=== PATIENT | female | born 1945 | race Caucasian/White ===

== ENCOUNTER 2018-06-17 03:53 | Inpatient (IN) | payer MEDICARE, OTHER ==
[2018-06-17] VITALS (23 sets, daily range): BP systolic 85–184; BP diastolic 41–86
[~2018-06-17] VITALS: Ht 152.4 cm; Wt 91.0 kg
[2018-06-17] MEDS ORDERED: heparin 10,000 units/1 ML INJ IV PRN (04:00)
[2018-06-17] MEDS ORDERED: heparin 10,000 units/1 ML INJ IV ONE ×2 (04:00)
[2018-06-17] MEDS ORDERED: LEVOTHYROXINE PO (04:15)
[2018-06-17] MEDS ORDERED: METOPROLOL PO (04:15)
[2018-06-17] MEDS ORDERED: AMLO2.5T2 PO (04:15)
[2018-06-17] MEDS ORDERED: HYDR25TA4 PO (04:15)
[2018-06-17] MEDS ORDERED: SPIR25TA5 PO (04:15)
[2018-06-17] MEDS ORDERED: ASPI-1265 PO (04:15)
[2018-06-17] MEDS ORDERED: LORA0.5T PO (04:15)
[2018-06-17] MEDS ORDERED: ATOR10TA87 PO (04:15)
[2018-06-17] MEDS ORDERED: iohexol 350 MG/1 ML 200ml bottle ONE (04:21)
[2018-06-17] MEDS ORDERED: midazolam 2 mg/2 ml injection ONE (04:21)
[2018-06-17] MEDS ORDERED: iohexol 350 MG/ML 50ML vial IV ONE (04:21)
[2018-06-17] MEDS ORDERED: fentaNYL/PF 50MCG/1 ML 2ML syringe ONE (04:21)
[2018-06-17] MEDS ORDERED: nitroGLYCERIN-Tridil 50MG/D5W 250 ML IV ONE (04:21)
[2018-06-17] MEDS ORDERED: heparin 1,000unit/ml 10ml vial 10 ML ONE (04:21)
[2018-06-17] MEDS ORDERED: LIDOcaine 1% 30ml preserv. free vial ONE (04:21)
[2018-06-17 04:38] LABS: BASOPHILS % (AUTO) 0.2 % (0-1); EOSINOPHILS # (AUTO) 0.2 X10'3 (0-0.9); EOSINOPHILS % (AUTO) 1.9 % (0-6); HEMATOCRIT 38.8 % (35.0-45.0); HEMOGLOBIN 13.1 g/dl (12.0-16.0); LYMPHOCYTES # (AUTO) 3.7 X10'3 (1.1-4.8); LYMPHOCYTES % (AUTO) 27.3 % (21-51); MEAN CORPUSCULAR HEMOGLOBIN 30.7 PG (27.0-31.0); MEAN CORPUSCULAR HGB CONC 33.8 % (33.0-36.5); MEAN CORPUSCULAR VOLUME 90.9 FL (78-98); MEAN PLATELET VOLUME 8.8 FL (7.4-10.4); MONOCYTES # (AUTO) 1.2 X10'3 (0-0.9); MONOCYTES % (AUTO) 9.2 % (2-12); NEUTROPHILS # (AUTO) 8.2 X10'3 (1.8-7.7); NEUTROPHILS % (AUTO) 61.4 % (42-75); PLATELET COUNT 227 X10'3 (140-440); RED BLOOD COUNT 4.27 X10'6 (4.20-5.60); RED CELL DISTRIBUTION WIDTH 13.8 % (11.5-14.5); WHITE BLOOD COUNT 13.4 X10'3 (4.5-11.0)
[2018-06-17 04:53] LABS: ALANINE AMINOTRANSFERASE 40 U/L (12-78); ALBUMIN 2.5 G/DL (3.4-5.0); ALBUMIN/GLOBULIN RATIO 0.8 (1.1-1.5); ALKALINE PHOSPHATASE 58 IU/L (46-116); ANION GAP 11 (8-16); ASPARTATE AMINO TRANSFERASE 30 U/L (10-37); BILIRUBIN,TOTAL 0.3 MG/DL (0.1-1.0); BLOOD UREA NITROGEN 21 MG/DL (7-18); BUN/CREATININE RATIO 24.7 (6.6-38.0); CALCIUM 7.3 MG/DL (8.5-10.1); CHLORIDE 108 MMOL/L (99-107); CREATININE 0.85 MG/DL (0.40-0.90); GLUCOSE 263 MG/DL (70-104); POTASSIUM 3.1 MMOL/L (3.5-5.1); SODIUM 141 MMOL/L (135-145); TOTAL CARBON DIOXIDE 22.4 MMOL/L (24-32); TOTAL PROTEIN 5.7 G/DL (6.4-8.2); eGFR 65 ML/MIN
[2018-06-17] MEDS ORDERED: heparin 1,000 UNITS/NS 500ml 500 ML ONE (04:56)
[2018-06-17] MEDS ORDERED: DOPamine 400mg/D5W 250ml 250 ML IV ONE (05:06)
[2018-06-17] MEDS ORDERED: ticagrelor 90mg tablet ONE (05:33)
[2018-06-17] MEDS ORDERED: potassium Cl 20mEq/100mL bag 100 ML IV ONE (05:48)
[2018-06-17 06:31] LABS: ISTAT HGB ART 13.9 g/dl (12.0-16.0); ISTAT Hct ART 41 %PCV (35-48); ISTAT O2 SATURATION ARTERIAL 96 % (95-98); ISTAT SOURCE ART
[2018-06-17 06:31] LABS: ISTAT Hct MIX 41 %PCV (35-48); ISTAT O2 SATURATION MIX VENOUS 51 % (60-80); ISTAT SOURCE MIX
[2018-06-17] MEDS ORDERED: magnesium hydroxide 30ml (MOM) UD suspension PO PRN (07:15)
[2018-06-17] MEDS ORDERED: HYDROcodone/acetaminophen 10/325mg tab PO PRN (07:15)
[2018-06-17] MEDS ORDERED: acetaminophen 325mg tablet PO PRN (07:15)
[2018-06-17] MEDS ORDERED: proCHLORperazine 10 MG/2 ml inj IV PRN (07:15)
[2018-06-17] MEDS ORDERED: cyclobenzaprine 10mg tablet PO PRN (07:15)
[2018-06-17] MEDS ORDERED: furosemide 20 MG/2 ML vial IV ONE (07:20)
[2018-06-17] MEDS ORDERED: normal saline 1000ml 1,000 ML IV SCH (07:20)
[2018-06-17] MEDS ORDERED: magnesium 4gm in 100ml NS 100 ML IV PRN (07:30)
[2018-06-17] MEDS ORDERED: potassium Cl 40MEQ/250ML bag 250 ML IV PRN ×2 (07:30)
[2018-06-17] MEDS ORDERED: magnesium 1gm/100ml D5W IVPB 100 ML IV PRN (07:30)
[2018-06-17] MEDS ORDERED: potassium Cl 20 mEq SR tablet PO PRN ×2 (07:30)
[2018-06-17] MEDS ORDERED: potassium Cl 20 mEq SR tablet PO ONE (07:30)
[2018-06-17] MEDS ORDERED: aspirin 81mg tab.chew PO ONE (07:30)
[2018-06-17] MEDS ORDERED: MESSAGE TO PHARMACY PO ONE (07:35)
[2018-06-17] MEDS ORDERED: dextrose 50%-water 50ml dispensing syringe IV PRN ×2 (07:35)
[2018-06-17] MEDS ORDERED: dextrose ORAL solution 15 GM/59 ML bottle PO PRN ×2 (07:35)
[2018-06-17] MEDS ORDERED: glucagon, human recombinant 1mg kit SUBCUT PRN (07:35)
[2018-06-17 07:41] LABS: MAGNESIUM 1.2 MG/DL (1.5-2.4)
[2018-06-17] MEDS: docusate sod 100mg capsule PO SCH ×2 (07:47→19:09)
[2018-06-17] MEDS: lisinopril 5mg tablet PO SCH (07:47)
[2018-06-17] MEDS: metoprolol tartrate 50mg tablet PO SCH ×2 (07:47→19:10)
[2018-06-17] MEDS: atorvastatin 20mg tablet PO SCH (07:48)
[2018-06-17] MEDS: K and/or MAG REPLACEMENT MC SCH (08:00)
[2018-06-17] MEDS: aspirin 81mg tab.chew PO SCH (08:00)
[2018-06-17] MEDS: furosemide 20MG tablet PO SCH (08:00)
[2018-06-17 08:52] LABS: CHOL/HDL RATIO 3.4 (0.00-4.99); CHOLESTEROL 154 MG/DL (0-200); HDL CHOLESTEROL 45 MG/DL (35-60); LDL CHOLESTEROL 104 MG/DL (50-100); TRIGLYCERIDES 41 MG/DL (20-135)
[2018-06-17 09:48] LABS: HEMOGLOBIN A1C 8.3 % (4.5-6.2)
[2018-06-17] MEDS: insulin Lispro (HumaLOG) vial - multi-dose SQ SCH ×3 (10:10→19:13)
[2018-06-17] MEDS: HYDROcodone/acetaminophen 10/325mg tab PO PRN ×2 (10:51→22:02)
[2018-06-17] MEDS: spironolactone 25 MG tablet PO SCH (10:51)
[2018-06-17] MEDS: ticagrelor 90mg tablet PO SCH (20:32)
[2018-06-17] MEDS: insulin glargine (Lantus) pen - multi-dose SQ SCH (20:47)
[2018-06-17] MEDS: OXAZEpam 15mg capsule PO PRN (22:03)
[2018-06-18] VITALS (24 sets, daily range): BP systolic 87–139; BP diastolic 49–72
[2018-06-18 05:13] LABS: BASOPHILS % (AUTO) 0.1 % (0-1); EOSINOPHILS % (AUTO) 0.1 % (0-6); HEMOGLOBIN 13.9 g/dl (12.0-16.0); LYMPHOCYTES # (AUTO) 2.5 X10'3 (1.1-4.8); MEAN CORPUSCULAR HEMOGLOBIN 30.9 PG (27.0-31.0); MEAN CORPUSCULAR HGB CONC 34.8 % (33.0-36.5); MEAN CORPUSCULAR VOLUME 89.1 FL (78-98); MONOCYTES # (AUTO) 1.7 X10'3 (0-0.9); MONOCYTES % (AUTO) 12.6 % (2-12); NEUTROPHILS # (AUTO) 9.1 X10'3 (1.8-7.7); NEUTROPHILS % (AUTO) 68.2 % (42-75); PLATELET COUNT 237 X10'3 (140-440); RED BLOOD COUNT 4.49 X10'6 (4.20-5.60); WHITE BLOOD COUNT 13.4 X10'3 (4.5-11.0)
[2018-06-18 05:36] LABS: ALBUMIN 2.9 G/DL (3.4-5.0); ANION GAP 9 (8-16); BLOOD UREA NITROGEN 27 MG/DL (7-18); BUN/CREATININE RATIO 29.7 (6.6-38.0); CALCIUM 8.9 MG/DL (8.5-10.1); CHLORIDE 102 MMOL/L (99-107); CREATININE 0.91 MG/DL (0.40-0.90); GLUCOSE 155 MG/DL (70-104); MAGNESIUM 1.4 MG/DL (1.5-2.4); POTASSIUM 3.9 MMOL/L (3.5-5.1); SODIUM 136 MMOL/L (135-145); TOTAL CARBON DIOXIDE 25.3 MMOL/L (24-32); eGFR 60 ML/MIN
[2018-06-18] MEDS: K and/or MAG REPLACEMENT MC SCH (07:17)
[2018-06-18] MEDS: ticagrelor 90mg tablet PO SCH ×2 (08:04→19:25)
[2018-06-18] MEDS: lisinopril 5mg tablet PO SCH (08:04)
[2018-06-18] MEDS: metoprolol tartrate 50mg tablet PO SCH ×2 (08:04→19:25)
[2018-06-18] MEDS: aspirin 81mg tab.chew PO SCH (08:04)
[2018-06-18] MEDS: atorvastatin 20mg tablet PO SCH (08:04)
[2018-06-18] MEDS: spironolactone 25 MG tablet PO SCH (08:04)
[2018-06-18] MEDS: furosemide 20MG tablet PO SCH (08:04)
[2018-06-18] MEDS: docusate sod 100mg capsule PO SCH ×2 (08:04→19:25)
[2018-06-18] MEDS ORDERED: heparin 10,000 units/1 ML INJ ONE (09:00)
[2018-06-18] MEDS ORDERED: heparin, porcine/D5W 25,000 units/250ml premix IV ONE (09:00)
[2018-06-18] MEDS: insulin Lispro (HumaLOG) vial - multi-dose SQ SCH ×4 (09:37→21:24)
[2018-06-18] MEDS: insulin glargine (Lantus) pen - multi-dose SQ SCH (21:08)
[2018-06-19] VITALS (16 sets, daily range): BP systolic 91–160; BP diastolic 45–93
[2018-06-19 05:51] LABS: MAGNESIUM 1.6 MG/DL (1.5-2.4); POTASSIUM 3.5 MMOL/L (3.5-5.1)
[2018-06-19] MEDS: atorvastatin 20mg tablet PO SCH (07:15)
[2018-06-19] MEDS: lisinopril 5mg tablet PO SCH (07:15)
[2018-06-19] MEDS: ticagrelor 90mg tablet PO SCH ×2 (07:15→19:28)
[2018-06-19] MEDS: docusate sod 100mg capsule PO SCH ×2 (07:15→19:28)
[2018-06-19] MEDS: aspirin 81mg tab.chew PO SCH (07:16)
[2018-06-19] MEDS: metoprolol tartrate 50mg tablet PO SCH ×2 (07:16→19:28)
[2018-06-19] MEDS: furosemide 20MG tablet PO SCH (07:16)
[2018-06-19] MEDS: spironolactone 25 MG tablet PO SCH (07:23)
[2018-06-19] MEDS: K and/or MAG REPLACEMENT MC SCH (08:00)
[2018-06-19] MEDS: insulin Lispro (HumaLOG) vial - multi-dose SQ SCH ×3 (09:00→19:27)
[2018-06-19] MEDS: nystatin 15 GM powder TP SCH (20:37)
[2018-06-19] MEDS: insulin glargine (Lantus) pen - multi-dose SQ SCH (21:46)
[2018-06-19] MEDS: OXAZEpam 15mg capsule PO PRN (23:56)
[2018-06-20 03:00] VITALS: BP 122/43
[2018-06-20 05:50] LABS: MAGNESIUM 1.7 MG/DL (1.5-2.4); POTASSIUM 4.1 MMOL/L (3.5-5.1)
[2018-06-20] MEDS ORDERED: magnesium 4gm in 100ml NS 100 ML IV ONE (06:30)
[2018-06-20 07:00] VITALS: BP 128/63
[2018-06-20] MEDS ORDERED: diltiazem 5mg/ml 5ml inj. IV ONE (07:55)
[2018-06-20] MEDS ORDERED: diltiazem-NS 100mg/100ml 100 ML IV SCH (07:55)
[2018-06-20] MEDS: lisinopril 5mg tablet PO SCH (07:56)
[2018-06-20] MEDS: levoTHYROXINE 25mcg tablet PO SCH (07:56)
[2018-06-20] MEDS: levoTHYROXINE 112mcg tablet PO SCH (07:56)
[2018-06-20] MEDS: metoprolol tartrate 50mg tablet PO SCH ×2 (07:56→19:53)
[2018-06-20] MEDS: docusate sod 100mg capsule PO SCH ×2 (07:56→19:53)
[2018-06-20] MEDS: furosemide 20MG tablet PO SCH (07:57)
[2018-06-20] MEDS: ticagrelor 90mg tablet PO SCH ×2 (07:57→19:53)
[2018-06-20] MEDS: atorvastatin 20mg tablet PO SCH (07:57)
[2018-06-20] MEDS: aspirin 81mg tab.chew PO SCH (07:57)
[2018-06-20] MEDS: spironolactone 25 MG tablet PO SCH (07:57)
[2018-06-20] MEDS ORDERED: LEVOTHYROXINE 0.137 MG PO SCH (08:00)
[2018-06-20] MEDS: nystatin 15 GM powder TP SCH ×2 (08:00→19:53)
[2018-06-20] MEDS: insulin Lispro (HumaLOG) vial - multi-dose SQ SCH ×3 (08:51→18:44)
[2018-06-20 11:00] VITALS: BP 99/48
[2018-06-20 15:00] VITALS: BP 110/85
[2018-06-20 18:00] VITALS: BP 124/71
[2018-06-20] MEDS: magnesium Cl slow-release 64mg tablet PO PRN (19:54)
[2018-06-20] MEDS: insulin glargine (Lantus) pen - multi-dose SQ SCH (21:14)
[2018-06-20 22:00] VITALS: BP 119/71
[2018-06-21 02:00] VITALS: BP 118/84
[2018-06-21 06:13] LABS: MAGNESIUM 1.7 MG/DL (1.5-2.4); POTASSIUM 4.3 MMOL/L (3.5-5.1)
[2018-06-21 06:30] VITALS: BP 94/52
[2018-06-21] MEDS: levoTHYROXINE 112mcg tablet PO SCH (07:05)
[2018-06-21] MEDS: metoprolol tartrate 50mg tablet PO SCH (07:06)
[2018-06-21] MEDS: aspirin 81mg tab.chew PO SCH (07:06)
[2018-06-21] MEDS: levoTHYROXINE 25mcg tablet PO SCH (07:06)
[2018-06-21] MEDS: ticagrelor 90mg tablet PO SCH (07:06)
[2018-06-21] MEDS: docusate sod 100mg capsule PO SCH (07:06)
[2018-06-21] MEDS: furosemide 20MG tablet PO SCH (07:06)
[2018-06-21] MEDS: lisinopril 5mg tablet PO SCH (07:07)
[2018-06-21] MEDS: atorvastatin 20mg tablet PO SCH (07:07)
[2018-06-21] MEDS ORDERED: apixaban 5mg tablet PO SCH (08:00)
[2018-06-21] MEDS: spironolactone 25 MG tablet PO SCH (08:22)
[2018-06-21] MEDS: insulin Lispro (HumaLOG) vial - multi-dose SQ SCH ×2 (08:24→13:23)
[2018-06-21] MEDS: magnesium Cl slow-release 64mg tablet PO PRN (09:00)
[2018-06-21] MEDS: nystatin 15 GM powder TP SCH (09:00)
[2018-06-21] MEDS ORDERED: APIX5TAB3 PO (09:47)
[2018-06-21] MEDS ORDERED: LISI-642 PO (09:47)
[2018-06-21] MEDS ORDERED: TICA90TA PO (09:47)
[2018-06-21] MEDS ORDERED: ATOR40TA PO (09:48)
[2018-06-21 11:00] VITALS: BP 92/62
== END 2018-06-21 15:11 | disposition home or self-care (01) | DRG 246 ==
LOC: ER 03:53 → CICU 2S 05:00 → PCU 3S 06-19 11:43
PROVIDERS: ADMIT Internal Medicine Cardiovascular Disease; ATTEND Internal Medicine Cardiovascular Disease
PROC: 4A023N8 Measurement of Cardiac Sampling and Pressure, Bilateral, Percutaneous Approach (ICD-10-PCS; principal; 2018-06-17)
PROC: 027034Z Dilation of Coronary Artery, One Artery with Drug-eluting Intraluminal Device, Percutaneous Approach (ICD-10-PCS; 2018-06-17)
PROC: B2111ZZ Fluoroscopy of Multiple Coronary Arteries using Low Osmolar Contrast (ICD-10-PCS; 2018-06-17)
PROC: B2151ZZ Fluoroscopy of Left Heart using Low Osmolar Contrast (ICD-10-PCS; 2018-06-17)
DX: I21.11 ST elevation (STEMI) myocardial infarction involving right coronary artery (principal); I50.21 Acute systolic (congestive) heart failure; E03.9 Hypothyroidism, unspecified; E11.9 Type 2 diabetes mellitus without complications; E78.5 Hyperlipidemia, unspecified; F41.9 Anxiety disorder, unspecified; I11.0 Hypertensive heart disease with heart failure; I48.91 Unspecified atrial fibrillation; Z79.899 Other long term (current) drug therapy; Z79.82 Long term (current) use of aspirin; Z79.01 Long term (current) use of anticoagulants; Z86.73 Personal history of transient ischemic attack (TIA), and cerebral infarction without residual deficits; Z82.49 Family history of ischemic heart disease and other diseases of the circulatory system
CPT/HCPCS: 93306; 93460; 96374; 99285; C9606; 36415; 71045; 80048; 80053; 80061; 82803; 82948; 83036; 83735; 83880; 84132; 84484; 85014; 85025; 85347; 87070; 93005; 93308; 97116; 97162; 97530; A4620; A6213; A6257; A6449; C1725; C1769; C1874; C1894; J0780; J1265; J1644; J1815; J1940; J2250; J3010; J3475; J3480; J3490; J7030; Q9967

== ENCOUNTER 2018-08-09 08:46 | Outpatient (CLI) | payer MEDICARE ==
[~2018-08-09 08:46] MED LIST: APIX5TAB3 PO; ASPI-1265 PO; ATOR40TA PO; HYDR25TA4 PO; LEVOTHYROXINE PO; LISI-642 PO; LORA0.5T PO; METOPROLOL PO; SPIR25TA5 PO; TICA90TA PO
[2018-08-09 09:41] LABS: BASOPHILS % (AUTO) 0.3 % (0-1); EOSINOPHILS # (AUTO) 0.2 X10'3 (0-0.9); EOSINOPHILS % (AUTO) 2.1 % (0-6); HEMATOCRIT 41.2 % (35.0-45.0); HEMOGLOBIN 13.8 g/dl (12.0-16.0); LYMPHOCYTES # (AUTO) 1.5 X10'3 (1.1-4.8); LYMPHOCYTES % (AUTO) 13.5 % (21-51); MEAN CORPUSCULAR HEMOGLOBIN 30.8 PG (27.0-31.0); MEAN CORPUSCULAR HGB CONC 33.4 % (33.0-36.5); MEAN PLATELET VOLUME 8.7 FL (7.4-10.4); MONOCYTES # (AUTO) 0.8 X10'3 (0-0.9); MONOCYTES % (AUTO) 7.4 % (2-12); NEUTROPHILS # (AUTO) 8.7 X10'3 (1.8-7.7); NEUTROPHILS % (AUTO) 76.7 % (42-75); PLATELET COUNT 316 X10'3 (140-440); RED BLOOD COUNT 4.48 X10'6 (4.20-5.60); RED CELL DISTRIBUTION WIDTH 14.5 % (11.5-14.5); WHITE BLOOD COUNT 11.4 X10'3 (4.5-11.0)
[2018-08-09 09:48] LABS: ALBUMIN 3.1 G/DL (3.4-5.0); ANION GAP 6 (8-16); BLOOD UREA NITROGEN 25 MG/DL (7-18); BUN/CREATININE RATIO 28.7 (6.6-38.0); CALCIUM 9.2 MG/DL (8.5-10.1); CHLORIDE 100 MMOL/L (99-107); CREATININE 0.87 MG/DL (0.40-0.90); GLUCOSE 194 MG/DL (70-104); POTASSIUM 3.9 MMOL/L (3.5-5.1); SODIUM 136 MMOL/L (135-145); TOTAL CARBON DIOXIDE 30.5 MMOL/L (24-32); eGFR 63 ML/MIN
[2018-08-09 09:53] LABS: PARTIAL THROMBOPLASTIN TIME 26 SECONDS (22-32); PROTHROMBIN TIME 10.3 SECONDS (9.0-12.0)
[2018-08-10] MEDS ORDERED: nitroGLYCERIN-Tridil 50MG/D5W 0 ML IV ONE (07:46)
[2018-08-10] MEDS ORDERED: heparin 1,000unit/ml 10ml vial 0 ML ONE (07:47)
[2018-08-10] MEDS ORDERED: midazolam 2 mg/2 ml injection ONE (07:47)
[2018-08-10] MEDS ORDERED: LIDOcaine 1% 30ml preserv. free vial ONE (07:47)
[2018-08-10] MEDS ORDERED: fentaNYL/PF 50MCG/1 ML 2ML syringe ONE (07:47)
[2018-08-10] MEDS ORDERED: iohexol 350MG/ML 100ml bottle IV ONE (07:47)
[2018-08-10] MEDS ORDERED: heparin 1,000 UNITS/NS 500ml 0 ML ONE (07:47)
[2018-08-10] MEDS ORDERED: iohexol 350 MG/ML 50ML vial IV ONE (07:47)
== END 2018-08-09 23:59 | disposition home or self-care (01) ==
LOC: SSTAY O 08:46 → EDSTATUS 08-10 08:00
PROVIDERS: ATTEND Internal Medicine Cardiovascular Disease
DX: I25.118 Atherosclerotic heart disease of native coronary artery with other forms of angina pectoris (principal); I10 Essential (primary) hypertension; E03.9 Hypothyroidism, unspecified; E11.9 Type 2 diabetes mellitus without complications; E78.5 Hyperlipidemia, unspecified; E66.9 Obesity, unspecified; I25.2 Old myocardial infarction; I48.0 Paroxysmal atrial fibrillation; Z86.73 Personal history of transient ischemic attack (TIA), and cerebral infarction without residual deficits; Z90.49 Acquired absence of other specified parts of digestive tract; Z79.01 Long term (current) use of anticoagulants; Z79.4 Long term (current) use of insulin; Z79.82 Long term (current) use of aspirin; Z68.37 Body mass index [BMI] 37.0-37.9, adult; Z95.5 Presence of coronary angioplasty implant and graft; Z86.74 Personal history of sudden cardiac arrest; Z79.899 Other long term (current) drug therapy; Z98.890 Other specified postprocedural states; Z82.49 Family history of ischemic heart disease and other diseases of the circulatory system
CPT/HCPCS: 36415; 80048; 85025; 85610; 85730; J1644; J2250; J3010; J3490; Q9967

== ENCOUNTER 2018-09-21 06:58 | Day surgery (SDC) | payer MEDICARE ==
[2018-09-20 11:15] LABS: BASOPHILS % (AUTO) 0.2 % (0-1); EOSINOPHILS # (AUTO) 0.2 X10'3 (0-0.9); EOSINOPHILS % (AUTO) 1.5 % (0-6); HEMATOCRIT 42.5 % (35.0-45.0); HEMOGLOBIN 14.2 g/dl (12.0-16.0); LYMPHOCYTES # (AUTO) 2.1 X10'3 (1.1-4.8); LYMPHOCYTES % (AUTO) 20.1 % (21-51); MEAN CORPUSCULAR HEMOGLOBIN 30.1 PG (27.0-31.0); MEAN CORPUSCULAR HGB CONC 33.5 % (33.0-36.5); MEAN CORPUSCULAR VOLUME 90.1 FL (78-98); MEAN PLATELET VOLUME 8.5 FL (7.4-10.4); MONOCYTES # (AUTO) 0.9 X10'3 (0-0.9); MONOCYTES % (AUTO) 8.9 % (2-12); NEUTROPHILS # (AUTO) 7.2 X10'3 (1.8-7.7); NEUTROPHILS % (AUTO) 69.3 % (42-75); PLATELET COUNT 290 X10'3 (140-440); RED BLOOD COUNT 4.72 X10'6 (4.20-5.60); RED CELL DISTRIBUTION WIDTH 12.9 % (11.5-14.5); WHITE BLOOD COUNT 10.4 X10'3 (4.5-11.0)
[2018-09-20 11:20] LABS: ALBUMIN 3.2 G/DL (3.4-5.0); ANION GAP 8 (8-16); BLOOD UREA NITROGEN 23 MG/DL (7-18); BUN/CREATININE RATIO 27.7 (6.6-38.0); CALCIUM 9.5 MG/DL (8.5-10.1); CHLORIDE 99 MMOL/L (99-107); CREATININE 0.83 MG/DL (0.40-0.90); GLUCOSE 120 MG/DL (70-104); POTASSIUM 4.1 MMOL/L (3.5-5.1); SODIUM 136 MMOL/L (135-145); TOTAL CARBON DIOXIDE 28.7 MMOL/L (24-32); eGFR 67 ML/MIN
[2018-09-20 11:33] LABS: PARTIAL THROMBOPLASTIN TIME 27 SECONDS (22-32); PROTHROMBIN TIME 10.3 SECONDS (9.0-12.0)
[~2018-09-21] VITALS: Ht 160 cm; Wt 83.9 kg
[2018-09-21] VITALS (12 sets, daily range): BP systolic 100–149; BP diastolic 36–76
[2018-09-21] MEDS ORDERED: LORazepam 0.5 MG tablet PO PRN (07:30)
[2018-09-21] MEDS ORDERED: diphenhydrAMINE 25mg capsule PO PRN (07:30)
[2018-09-21] MEDS ORDERED: INSU100V9 SQ (08:39)
[2018-09-21] MEDS ORDERED: LEVO125T PO (08:39)
[2018-09-21] MEDS ORDERED: METF500T PO (08:39)
[2018-09-21] MEDS ORDERED: HUM7525 SQ (08:39)
[2018-09-21] MEDS: normal saline 1000ml 1,000 ML IV SCH ×2 (08:44→17:30)
[2018-09-21] MEDS ORDERED: TICA90TA2 PO (08:45)
[2018-09-21] MEDS ORDERED: APIX5TAB3 PO (08:45)
[2018-09-21] MEDS ORDERED: iohexol 350MG/ML 100ml bottle IV ONE ×2 (09:43→10:36)
[2018-09-21] MEDS ORDERED: LIDOcaine 1% (10mg/ml)w/preservative injection 20ml MDV ONE (09:43)
[2018-09-21] MEDS ORDERED: nitroGLYCERIN-Tridil 50MG/D5W 250 ML IV ONE (09:43)
[2018-09-21] MEDS ORDERED: iohexol 350 MG/ML 50ML vial IV ONE (09:43)
[2018-09-21] MEDS ORDERED: heparin 1,000unit/ml 10ml vial 10 ML ONE (09:43)
[2018-09-21] MEDS ORDERED: heparin 25,000 UNIT/250ml bag 250 ML IV ONE (10:01)
[2018-09-21] MEDS ORDERED: fentaNYL/PF 50MCG/1 ML 2ML syringe ONE (10:01)
[2018-09-21] MEDS ORDERED: midazolam 2 mg/2 ml injection ONE (10:02)
[2018-09-21] MEDS ORDERED: ticagrelor 90mg tablet ONE (11:05)
[2018-09-21] MEDS ORDERED: cyclobenzaprine 10mg tablet PO PRN (11:50)
[2018-09-21] MEDS ORDERED: acetaminophen 325mg tablet PO PRN (11:50)
[2018-09-21] MEDS ORDERED: OXAZEpam 15mg capsule PO PRN (11:50)
[2018-09-21] MEDS ORDERED: magnesium hydroxide 30ml (MOM) UD suspension PO PRN (11:50)
[2018-09-21] MEDS ORDERED: proCHLORperazine 10 MG/2 ml inj IV PRN (11:50)
[2018-09-21] MEDS ORDERED: HYDROcodone/acetaminophen 10/325mg tab PO PRN ×2 (11:50)
[2018-09-21] MEDS: aspirin 81mg tab.chew PO SCH (12:18)
[2018-09-21] MEDS ORDERED: MESSAGE TO NURSING PO ONE (17:00)
[2018-09-21] MEDS: apixaban 5mg tablet PO SCH (19:35)
[2018-09-21] MEDS: docusate sod 100mg capsule PO SCH (20:00)
[2018-09-21] MEDS: spironolactone 25 MG tablet PO SCH (20:00)
[2018-09-21] MEDS ORDERED: insulin glargine (Lantus) pen - multi-dose SQ SCH (21:00)
[2018-09-21] MEDS: insulin Lispro (HumaLOG) vial - multi-dose SQ SCH (21:11)
[2018-09-21] MEDS: ticagrelor 90mg tablet PO SCH (22:29)
[2018-09-22 03:00] VITALS: BP 119/72
[2018-09-22 06:03] LABS: BASOPHILS % (AUTO) 0.4 % (0-1); EOSINOPHILS # (AUTO) 0.2 X10'3 (0-0.9); HEMATOCRIT 39.9 % (35.0-45.0); HEMOGLOBIN 13.5 g/dl (12.0-16.0); LYMPHOCYTES # (AUTO) 1.9 X10'3 (1.1-4.8); LYMPHOCYTES % (AUTO) 19.3 % (21-51); MEAN CORPUSCULAR HEMOGLOBIN 30.5 PG (27.0-31.0); MEAN CORPUSCULAR HGB CONC 33.9 % (33.0-36.5); MEAN PLATELET VOLUME 8.5 FL (7.4-10.4); MONOCYTES # (AUTO) 0.8 X10'3 (0-0.9); MONOCYTES % (AUTO) 8.4 % (2-12); NEUTROPHILS % (AUTO) 69.9 % (42-75); PLATELET COUNT 237 X10'3 (140-440); RED BLOOD COUNT 4.43 X10'6 (4.20-5.60); RED CELL DISTRIBUTION WIDTH 13.4 % (11.5-14.5)
[2018-09-22 06:23] LABS: ALANINE AMINOTRANSFERASE 24 U/L (12-78); ALBUMIN 2.8 G/DL (3.4-5.0); ALBUMIN/GLOBULIN RATIO 0.7 (1.1-1.5); ALKALINE PHOSPHATASE 71 IU/L (46-116); ANION GAP 11 (8-16); ASPARTATE AMINO TRANSFERASE 25 U/L (10-37); BILIRUBIN,TOTAL 0.5 MG/DL (0.1-1.0); BLOOD UREA NITROGEN 19 MG/DL (7-18); BUN/CREATININE RATIO 24.4 (6.6-38.0); CALCIUM 9.1 MG/DL (8.5-10.1); CHLORIDE 105 MMOL/L (99-107); CREATININE 0.78 MG/DL (0.40-0.90); GLUCOSE 141 MG/DL (70-104); SODIUM 139 MMOL/L (135-145); TOTAL CARBON DIOXIDE 22.9 MMOL/L (24-32); TOTAL PROTEIN 6.6 G/DL (6.4-8.2); eGFR 72 ML/MIN
[2018-09-22 06:57] VITALS: BP 121/66
[2018-09-22] MEDS ORDERED: METF500T PO (07:05)
[2018-09-22] MEDS ORDERED: CARV3.12 PO (07:06)
[2018-09-22] MEDS: insulin Lispro (HumaLOG) vial - multi-dose SQ SCH (07:54)
[2018-09-22] MEDS: aspirin 81mg tab.chew PO SCH (07:57)
[2018-09-22] MEDS: docusate sod 100mg capsule PO SCH (07:57)
[2018-09-22] MEDS: apixaban 5mg tablet PO SCH (07:58)
[2018-09-22] MEDS: ticagrelor 90mg tablet PO SCH (07:59)
[2018-09-22] MEDS ORDERED: carVEDilol 3.125mg tablet PO SCH (08:00)
[2018-09-22] MEDS ORDERED: lisinopril 5mg tablet PO SCH (08:00)
[2018-09-22] MEDS ORDERED: atorvastatin 20mg tablet PO SCH (08:00)
[2018-09-22] MEDS ORDERED: aspirin 81mg tab.chew PO SCH (08:00)
[2018-09-22] MEDS: spironolactone 25 MG tablet PO SCH (08:00)
[2018-09-22] MEDS ORDERED: HYDROchlorothiazide 25mg tablet PO SCH (08:00)
[2018-09-22] MEDS ORDERED: levoTHYROXINE 125mcg tablet PO SCH (08:00)
[2018-09-22] MEDS ORDERED: insulin glargine (Lantus) pen - multi-dose SQ SCH (08:31)
[2018-09-22] MEDS ORDERED: insulin Lispro (HumaLOG) vial - multi-dose SQ SCH (08:31)
[2018-09-22] MEDS ORDERED: carvedilol 6.25mg tablet PO SCH (08:45)
[2018-09-22] MEDS ORDERED: CARV-49 PO (08:54)
[2018-09-22] MEDS ORDERED: metoprolol tartrate 50mg tablet PO SCH ×2 (09:00→09:02)
[2018-09-22] MEDS ORDERED: METO50TA17 PO (09:03)
[2018-09-22 09:38] VITALS: BP_SYST 121
[2018-09-23] MEDS ORDERED: metFORMIN 500mg tablet PO SCH (20:00)
== END 2018-09-22 10:40 | disposition home or self-care (01) ==
LOC: SSTAY O 06:58 → MED 3N 19:27 → SSTAY O 09-22 10:40
PROVIDERS: ATTEND Internal Medicine Cardiovascular Disease
DX: I25.118 Atherosclerotic heart disease of native coronary artery with other forms of angina pectoris (principal); E11.9 Type 2 diabetes mellitus without complications; I10 Essential (primary) hypertension; E78.5 Hyperlipidemia, unspecified; I25.2 Old myocardial infarction; I48.0 Paroxysmal atrial fibrillation; E03.9 Hypothyroidism, unspecified; E66.9 Obesity, unspecified; H91.8X3 Other specified hearing loss, bilateral; Z87.2 Personal history of diseases of the skin and subcutaneous tissue; Z95.5 Presence of coronary angioplasty implant and graft; Z90.49 Acquired absence of other specified parts of digestive tract; Z68.32 Body mass index [BMI] 32.0-32.9, adult; Z86.74 Personal history of sudden cardiac arrest; Z86.73 Personal history of transient ischemic attack (TIA), and cerebral infarction without residual deficits; Z90.89 Acquired absence of other organs; Z79.01 Long term (current) use of anticoagulants; Z79.82 Long term (current) use of aspirin; Z79.4 Long term (current) use of insulin; Z98.890 Other specified postprocedural states; Z79.899 Other long term (current) drug therapy; Z82.49 Family history of ischemic heart disease and other diseases of the circulatory system
CPT/HCPCS: 36415; 80048; 80053; 82948; 85025; 85347; 85610; 85730; 93005; 93458; 99152; 99153; A6257; C1874; C9600; C9601; J1644; J2001; J2250; J3010; J7030; Q0163; Q9967; A4620; C1725; C1769; G0378; J1815; J3490

== ENCOUNTER 2020-11-01 16:15 | Emergency (ER) | payer MEDICARE ==
[~2020-11-01] VITALS: Ht 154.9 cm; Wt 84.1 kg
[~2020-11-01 16:15] MED LIST changes: +HUM7525 SQ; -HYDR25TA4 PO; +INSU100V9 SQ; +LEVO125T PO; -LEVOTHYROXINE PO; -LORA0.5T PO; +METO50TA17 PO; -METOPROLOL PO; -TICA90TA PO; +TICA90TA2 PO
[2020-11-01 17:15] LABS: BASOPHILS % (AUTO) 0.4 % (0-1); EOSINOPHILS # (AUTO) 0.1 X10'3 (0-0.9); EOSINOPHILS % (AUTO) 1.6 % (0-6); HEMATOCRIT 44.4 % (35.0-45.0); HEMOGLOBIN 14.8 g/dl (12.0-16.0); LYMPHOCYTES # (AUTO) 1.6 X10'3 (1.1-4.8); LYMPHOCYTES % (AUTO) 20.7 % (21-51); MEAN CORPUSCULAR HEMOGLOBIN 30.7 PG (27.0-31.0); MEAN CORPUSCULAR HGB CONC 33.3 g/dL (33.0-36.5); MEAN PLATELET VOLUME 8.8 FL (7.4-10.4); MONOCYTES % (AUTO) 13.1 % (2-12); NEUTROPHILS # (AUTO) 5.1 X10'3 (1.8-7.7); NEUTROPHILS % (AUTO) 64.2 % (42-75); PLATELET COUNT 263 X10'3 (140-440); RED BLOOD COUNT 4.82 X10'6 (4.20-5.60); RED CELL DISTRIBUTION WIDTH 13.8 % (11.5-14.5); WHITE BLOOD COUNT 7.9 X10'3 (4.5-11.0)
[2020-11-01 17:29] LABS: ALANINE AMINOTRANSFERASE 42 U/L (12-78); ALBUMIN 3.2 G/DL (3.4-5.0); ALBUMIN/GLOBULIN RATIO 0.8 (1.1-1.5); ALKALINE PHOSPHATASE 79 IU/L (46-116); ANION GAP 6 (8-16); ASPARTATE AMINO TRANSFERASE 24 U/L (10-37); BILIRUBIN,TOTAL 0.6 MG/DL (0.1-1.0); BLOOD UREA NITROGEN 26 MG/DL (7-18); BUN/CREATININE RATIO 22.4 (6.6-38.0); CALCIUM 8.9 MG/DL (8.5-10.1); CHLORIDE 100 MMOL/L (99-107); CREATININE 1.16 MG/DL (0.40-0.90); GLUCOSE 180 MG/DL (70-104); POTASSIUM 3.6 MMOL/L (3.5-5.1); SODIUM 136 MMOL/L (135-145); TOTAL CARBON DIOXIDE 30.3 MMOL/L (24-32); TOTAL PROTEIN 7.4 G/DL (6.4-8.2); eGFR 45 ML/MIN
[2020-11-01 18:04] VITALS: BP 195/86
== END 2020-11-01 18:59 | disposition home or self-care (01) ==
LOC: ER 16:15
DX: I49.9 Cardiac arrhythmia, unspecified (principal); R42 Dizziness and giddiness; R06.02 Shortness of breath; I10 Essential (primary) hypertension; E11.9 Type 2 diabetes mellitus without complications; Z86.73 Personal history of transient ischemic attack (TIA), and cerebral infarction without residual deficits; Z79.82 Long term (current) use of aspirin; Z79.4 Long term (current) use of insulin; Z79.899 Other long term (current) drug therapy
CPT/HCPCS: 36415; 71045; 80053; 83880; 84484; 85025; 93005; 99285

== ENCOUNTER 2022-12-30 21:20 | Emergency (ER) | payer BC, MEDICAID ==
[~2022-12-30] VITALS: Ht 152.4 cm; Wt 81.8 kg
[2022-12-30 21:21] VITALS: BP 163/95
[2022-12-30 22:10] LABS: BASOPHILS % (AUTO) 0.4 % (0-1); EOSINOPHILS # (AUTO) 0.1 X10'3 (0-0.9); HEMOGLOBIN 11.8 g/dl (12.0-16.0); LYMPHOCYTES # (AUTO) 1.4 X10'3 (1.1-4.8); LYMPHOCYTES % (AUTO) 14.3 % (21-51); MEAN CORPUSCULAR HEMOGLOBIN 24.9 PG (27.0-31.0); MEAN CORPUSCULAR HGB CONC 31.9 g/dL (33.0-36.5); MEAN CORPUSCULAR VOLUME 78.1 FL (78-98); MEAN PLATELET VOLUME 7.7 FL (7.4-10.4); MONOCYTES # (AUTO) 0.8 X10'3 (0-0.9); NEUTROPHILS # (AUTO) 7.2 X10'3 (1.8-7.7); NEUTROPHILS % (AUTO) 76.3 % (42-75); PLATELET COUNT 386 X10'3 (140-440); RED BLOOD COUNT 4.74 X10'6 (4.20-5.60); RED CELL DISTRIBUTION WIDTH 18.1 % (11.5-14.5); WHITE BLOOD COUNT 9.4 X10'3 (4.5-11.0)
--- NOTE | 2022-12-30 22:17 | NUR ---
spoke with son Elliot and gave update.
[2022-12-30 22:27] LABS: ALANINE AMINOTRANSFERASE 47 U/L (12-78); ALBUMIN 2.8 G/DL (3.4-5.0); ALBUMIN/GLOBULIN RATIO 0.7 (1.1-1.5); ALKALINE PHOSPHATASE 93 IU/L (46-116); ANION GAP 10 (8-16); ASPARTATE AMINO TRANSFERASE 32 U/L (10-37); BILIRUBIN,TOTAL 0.6 MG/DL (0.1-1.0); BLOOD UREA NITROGEN 32 MG/DL (7-18); BUN/CREATININE RATIO 29.9 (10.0-20.0); CALCIUM 9.3 MG/DL (8.5-10.1); CHLORIDE 96 MMOL/L (99-107); CREATININE 1.07 MG/DL (0.40-0.90); GLUCOSE 226 MG/DL (70-104); LIPASE < 50 U/L (73-393); SODIUM 130 MMOL/L (135-145); TOTAL CARBON DIOXIDE 24.3 MMOL/L (24-32); TOTAL PROTEIN 6.9 G/DL (6.4-8.2); eGFR 49 ML/MIN
[2022-12-30] MEDS ORDERED: normal saline 1000ML IV soln IVB ONE (22:35)
[2022-12-30 23:29] LABS: CLARITY,URINE CLEAR (Clear); COLOR,URINE YELLOW (Yellow); GLUCOSE, URINE NEGATIVE (Neg); KETONES,URINE NEGATIVE (Neg); LEUKOCYTE ESTERASE ,URINE SMALL (Neg); NITRITES, URINE NEGATIVE (Neg); OCCULT BLOOD,URINE TRACE-INTACT (Neg); PH,URINE 5.5 (4.8-8.0); PROTEIN,URINE NEGATIVE (Neg); UROBILINOGEN,URINE 0.2 E.U/dL (0.2-1.0)
[2022-12-30 23:30] LABS: UA COLLECTION TYPE CLN CATCH MIDSTREAM
[2022-12-30 23:35] LABS: BACTERIA,URINE 2+ /HPF (Neg); MUCUS STRANDS FEW /LPF (Neg); RBC,URINE 0-2 /HPF (0-2); SQUAMOUS EPITHELIAL CELL,UR FEW /LPF (FEW)
[2022-12-30 23:36] LABS: TRANSITIONAL EPI CELLS,URINE FEW /HPF; WBC CLUMPS,URINE FEW /HPF (NEGATIVE)
[2022-12-31] MEDS ORDERED: cephalexin 500mg capsule PO ONE (00:05)
[2022-12-31] MEDS ORDERED: FOSFOMYCIN TROMETHAMINE 3 GM PACKET PO ONE (00:10)
== END 2022-12-31 01:29 | disposition home or self-care (01) ==
LOC: ER 21:20
DX: N39.0 Urinary tract infection, site not specified (principal); I11.9 Hypertensive heart disease without heart failure; E11.9 Type 2 diabetes mellitus without complications
CPT/HCPCS: 36415; 74176; 80053; 81001; 83690; 85025; 87088; 96360; 99284; J7030

== ENCOUNTER 2023-01-13 13:08 | Inpatient (IN) | payer BC, MEDICAID ==
[~2023-01-13] VITALS: Ht 152.4 cm; Wt 90.0 kg
[2023-01-13] MEDS ORDERED: furosemide 10 MG/1 ML 10ml inj IV ONE (13:30)
[2023-01-13 14:06] LABS: BASOPHILS # (AUTO) 0.1 X10'3 (0-0.2); BASOPHILS % (AUTO) 1.2 % (0-1); EOSINOPHILS % (AUTO) 0.6 % (0-6); HEMATOCRIT 38.7 % (35.0-45.0); LYMPHOCYTES % (AUTO) 12.7 % (21-51); MEAN CORPUSCULAR HEMOGLOBIN 23.6 PG (27.0-31.0); MEAN CORPUSCULAR HGB CONC 30.9 g/dL (33.0-36.5); MEAN CORPUSCULAR VOLUME 76.4 FL (78-98); MEAN PLATELET VOLUME 8.1 FL (7.4-10.4); MONOCYTES # (AUTO) 0.6 X10'3 (0-0.9); MONOCYTES % (AUTO) 7.5 % (2-12); NEUTROPHILS # (AUTO) 5.9 X10'3 (1.8-7.7); PLATELET COUNT 303 X10'3 (140-440); RED BLOOD COUNT 5.06 X10'6 (4.20-5.60); WHITE BLOOD COUNT 7.6 X10'3 (4.5-11.0)
[2023-01-13 14:10] LABS: ALANINE AMINOTRANSFERASE 61 U/L (12-78); ALBUMIN 3.1 G/DL (3.4-5.0); ALBUMIN/GLOBULIN RATIO 0.8 (1.1-1.5); ALKALINE PHOSPHATASE 107 IU/L (46-116); ANION GAP 11 (8-16); ASPARTATE AMINO TRANSFERASE 37 U/L (10-37); BILIRUBIN,TOTAL 1.1 MG/DL (0.1-1.0); BLOOD UREA NITROGEN 31 MG/DL (7-18); BUN/CREATININE RATIO 27.2 (10.0-20.0); CALCIUM 8.9 MG/DL (8.5-10.1); CHLORIDE 100 MMOL/L (99-107); CREATININE 1.14 MG/DL (0.40-0.90); GLUCOSE 331 MG/DL (70-104); POTASSIUM 3.6 MMOL/L (3.5-5.1); SODIUM 137 MMOL/L (135-145); TOTAL CARBON DIOXIDE 25.8 MMOL/L (24-32); eGFR 46 ML/MIN
[2023-01-13] MEDS ORDERED: diltiazem 5mg/ml 5ml inj. IV ONE (14:30)
[2023-01-13] MEDS ORDERED: nitroGLYCERIN 1gm ointment UD TP ONE (14:45)
[2023-01-13] MEDS ORDERED: aspirin 81mg tab.chew PO ONE (14:45)
--- NOTE | 2023-01-13 15:05 | NUR ---
Son Elliot Morton called and left his number for patient. Left his phone number
--- NOTE | 2023-01-13 15:08 | NUR ---
Son state that pt is a DNR.
--- NOTE | 2023-01-13 15:10 | NUR ---
Pt son states he wants placement for patient. Son states that his is her medical decision maker.
[2023-01-13 15:24] LABS: PLATELET ESTIMATE NORMAL
[2023-01-13 15:25] LABS: ANISOCYTOSIS 2+; BURR CELLS 1+; ELLIPTOCYTES 1+; MICROCYTOSIS 1+
[2023-01-13 15:26] LABS: SCHISTOCYTES FEW
[2023-01-13] MEDS ORDERED: ATOR40TA72 PO (17:05)
[2023-01-13] MEDS ORDERED: NOVLG SQ (17:05)
[2023-01-13] MEDS ORDERED: METO50TA16 PO (17:05)
[2023-01-13] MEDS ORDERED: HYDR-3964 PO (17:05)
[2023-01-13] MEDS ORDERED: AMIO200T61 PO (17:05)
[2023-01-13] MEDS ORDERED: LEVO125T8 PO (17:05)
[2023-01-13] MEDS ORDERED: CLOP75TA34 PO (17:05)
[2023-01-13] MEDS ORDERED: METO-384 PO (17:05)
[2023-01-13] MEDS ORDERED: LISI5TAB22 PO (17:05)
[2023-01-13] MEDS ORDERED: LIRA0.6P2 SQ (17:05)
[2023-01-13] MEDS ORDERED: INSU100I75 SQ (17:06)
[2023-01-13] MEDS ORDERED: APIX5TAB3 PO (17:06)
[2023-01-13] MEDS ORDERED: acetaminophen 325mg tablet PO PRN (17:35)
[2023-01-13] MEDS ORDERED: magnesium 2GM in 50ml NS 50 ML IV PRN (17:35)
[2023-01-13] MEDS ORDERED: magnesium hydroxide 30ml (MOM) UD suspension PO PRN (17:35)
[2023-01-13] MEDS ORDERED: PERFLUTREN PROTEIN-A MICROSPHR (Optison) 0.22 MG/ML 3ML VIAL IV ONE (17:35)
[2023-01-13] MEDS ORDERED: magnesium Cl slow-release 64mg tablet PO PRN (17:35)
[2023-01-13] MEDS ORDERED: magnesium 4gm in 100ml NS 100 ML IV PRN (17:35)
[2023-01-13] MEDS ORDERED: potassium Cl 40MEQ/1/2NS 520ml 520 ML IV PRN (17:35)
[2023-01-13] MEDS ORDERED: ondansetron/PF 4mg/2ml inj IV PRN (17:35)
[2023-01-13] MEDS ORDERED: Insulin ASPART (NovoLOG) pen SQ PRN (17:35)
[2023-01-13] MEDS ORDERED: mag hydrox/Alum hydrox/simeth 30ml oral suspension PO PRN (17:35)
--- NOTE | 2023-01-13 18:27 | NUR ---
received report from Cierra OROSCO assuming care of pt.
[2023-01-13] MEDS ORDERED: glucagon, human recombinant 1mg kit SUBCUT PRN (18:50)
[2023-01-13] MEDS ORDERED: MESSAGE TO PHARMACY PO ONE (18:50)
[2023-01-13] MEDS ORDERED: DEXTROSE 15 GM of carb/4 tabs (each vial/BOTTLE has 4 tablets) PO PRN ×2 (18:50)
[2023-01-13] MEDS ORDERED: dextrose 50%-water 50ml dispensing syringe IV PRN ×2 (18:50)
--- NOTE | 2023-01-13 19:05 | NUR ---
PT MOVED TO RM 10 REPORT GIVEN TO DEMETRIO ZAMORANO ASSUMING CARE OF PT
[2023-01-13 19:11] LABS: HEMOGLOBIN A1C 10.5 % (4.5-6.2)
[2023-01-13] MEDS: K and/or MAG REPLACEMENT MC SCH (19:59)
[2023-01-13] MEDS: docusate sod 100mg capsule PO SCH (20:00)
[2023-01-13] MEDS ORDERED: insulin glargine (Lantus) pen - multi-dose SQ SCH (21:00)
[2023-01-13] MEDS: apixaban 5mg tablet PO SCH (21:26)
[2023-01-13] MEDS: atorvastatin 20mg tablet PO SCH (21:26)
[2023-01-13] MEDS: metoprolol succinate 25mg (24-HOUR) SR. Tablet PO SCH (21:27)
[2023-01-13] MEDS: furosemide 10 MG/1 ML 10ml inj IV SCH (21:29)
[2023-01-13] MEDS: potassium Cl 20 mEq SR tablet PO PRN (21:37)
[2023-01-13] MEDS: insulin glargine (Lantus) pen - multi-dose SQ SCH (23:18)
[2023-01-14 07:57] LABS: BASOPHILS # (AUTO) 0.1 X10'3 (0-0.2); BASOPHILS % (AUTO) 1.1 % (0-1); EOSINOPHILS # (AUTO) 0.2 X10'3 (0-0.9); EOSINOPHILS % (AUTO) 2.1 % (0-6); HEMATOCRIT 38.5 % (35.0-45.0); HEMOGLOBIN 11.8 g/dl (12.0-16.0); LYMPHOCYTES # (AUTO) 1.6 X10'3 (1.1-4.8); LYMPHOCYTES % (AUTO) 19.2 % (21-51); MEAN CORPUSCULAR HEMOGLOBIN 23.5 PG (27.0-31.0); MEAN CORPUSCULAR HGB CONC 30.8 g/dL (33.0-36.5); MEAN CORPUSCULAR VOLUME 76.3 FL (78-98); MEAN PLATELET VOLUME 7.8 FL (7.4-10.4); MONOCYTES # (AUTO) 0.9 X10'3 (0-0.9); MONOCYTES % (AUTO) 11.4 % (2-12); NEUTROPHILS # (AUTO) 5.5 X10'3 (1.8-7.7); NEUTROPHILS % (AUTO) 66.2 % (42-75); PLATELET COUNT 272 X10'3 (140-440); RED BLOOD COUNT 5.05 X10'6 (4.20-5.60); RED CELL DISTRIBUTION WIDTH 18.8 % (11.5-14.5); WHITE BLOOD COUNT 8.4 X10'3 (4.5-11.0)
[2023-01-14] MEDS: LIRAGLUTIDE 0.6 MG/0.1 ML PEN.INJCTR SQ SCH (08:00)
[2023-01-14] MEDS: K and/or MAG REPLACEMENT MC SCH ×2 (08:00→20:00)
[2023-01-14 08:24] LABS: ALBUMIN 2.7 G/DL (3.4-5.0); ANION GAP 7 (8-16); BLOOD UREA NITROGEN 25 MG/DL (7-18); BUN/CREATININE RATIO 25.5 (10.0-20.0); CHLORIDE 103 MMOL/L (99-107); CREATININE 0.98 MG/DL (0.40-0.90); GLUCOSE 175 MG/DL (70-104); MAGNESIUM 1.6 MG/DL (1.5-2.4); POTASSIUM 3.3 MMOL/L (3.5-5.1); SODIUM 140 MMOL/L (135-145); TOTAL CARBON DIOXIDE 29.9 MMOL/L (24-32); eGFR 55 ML/MIN
[2023-01-14] MEDS: potassium Cl 20 mEq SR tablet PO PRN ×3 (09:00→21:15)
[2023-01-14] MEDS: furosemide 10 MG/1 ML 10ml inj IV SCH ×2 (09:00→21:17)
[2023-01-14] MEDS: levoTHYROXINE 125mcg tablet PO SCH (09:00)
[2023-01-14] MEDS: docusate sod 100mg capsule PO SCH ×2 (09:00→20:00)
[2023-01-14] MEDS: clopidogrel 75mg tablet PO SCH (09:01)
[2023-01-14] MEDS: apixaban 5mg tablet PO SCH ×2 (09:01→21:16)
[2023-01-14] MEDS: lisinopril 5mg tablet PO SCH (09:01)
[2023-01-14] MEDS: amiodarone 200mg tablet PO SCH (09:02)
[2023-01-14] MEDS: insulin Lispro (HumaLOG) vial - multi-dose SQ SCH ×2 (09:20→14:09)
[2023-01-14 17:27] VITALS: BP 130/84
--- NOTE | 2023-01-14 17:29 | NUR ---
Patient in 3027B U. I have received report from benedict OROSCO and had the opportunity to ask questions and assume patient care. Pt answering questions appropriately. orientated x4 at this time. call light in reach. Reymundo in place. Addendum: 01/14/23 at 1830 by Urvashi Hodges RN Amended: Links added.
[2023-01-14] MEDS ORDERED: ondansetron 4mg rapidly disintigrating tab PO PRN (17:55)
[2023-01-14 18:00] VITALS: BP 131/84
--- NOTE | 2023-01-14 18:00 | NUR ---
Patient in room PCU 3027. I have received report from Urvashi OROSCO and had the opportunity to ask questions and assume patient care.
--- NOTE | 2023-01-14 18:25 | NUR ---
Problems reprioritized. Patient report given, questions answered & plan of care reviewed with Agustina OROSCO. Pt awaiting dinner. reading her book. Addendum: 01/14/23 at 1827 by Urvashi Hodges RN Amended: Links added.
[2023-01-14] MEDS: metoprolol succinate 25mg (24-HOUR) SR. Tablet PO SCH (21:15)
[2023-01-14] MEDS: atorvastatin 20mg tablet PO SCH (21:16)
[2023-01-14] MEDS: insulin glargine (Lantus) pen - multi-dose SQ SCH (21:43)
[2023-01-14 22:00] VITALS: BP 129/66
[2023-01-14] MEDS: HYDROcodone/acetaminophen 5mg/325mg tablet PO PRN (22:46)
[2023-01-15 02:00] VITALS: BP 135/78
--- NOTE | 2023-01-15 06:31 | NUR ---
Problems reprioritized. Patient report given, questions answered & plan of care reviewed with Urvashi OROSCO.
[2023-01-15 06:40] VITALS: BP 125/74
[2023-01-15] MEDS: K and/or MAG REPLACEMENT MC SCH ×2 (08:00→20:00)
[2023-01-15] MEDS: LIRAGLUTIDE 0.6 MG/0.1 ML PEN.INJCTR SQ SCH (08:00)
[2023-01-15 08:10] LABS: ALBUMIN 2.7 G/DL (3.4-5.0); ANION GAP 10 (8-16); BLOOD UREA NITROGEN 34 MG/DL (7-18); BUN/CREATININE RATIO 25.2 (10.0-20.0); CALCIUM 8.8 MG/DL (8.5-10.1); CHLORIDE 102 MMOL/L (99-107); CREATININE 1.35 MG/DL (0.40-0.90); GLUCOSE 235 MG/DL (70-104); MAGNESIUM 1.6 MG/DL (1.5-2.4); POTASSIUM 4.1 MMOL/L (3.5-5.1); SODIUM 140 MMOL/L (135-145); TOTAL CARBON DIOXIDE 27.8 MMOL/L (24-32); eGFR 38 ML/MIN
[2023-01-15] MEDS: docusate sod 100mg capsule PO SCH ×2 (08:18→20:00)
[2023-01-15] MEDS: levoTHYROXINE 125mcg tablet PO SCH (08:19)
[2023-01-15] MEDS: amiodarone 200mg tablet PO SCH (08:19)
[2023-01-15] MEDS: apixaban 5mg tablet PO SCH ×2 (08:21→21:15)
[2023-01-15] MEDS: clopidogrel 75mg tablet PO SCH (08:21)
[2023-01-15] MEDS: lisinopril 5mg tablet PO SCH (08:22)
[2023-01-15] MEDS: furosemide 10 MG/1 ML 10ml inj IV SCH ×2 (08:26→21:16)
[2023-01-15 08:57] LABS: BASOPHILS % (AUTO) 0.5 % (0-1); EOSINOPHILS # (AUTO) 0.2 X10'3 (0-0.9); EOSINOPHILS % (AUTO) 2.2 % (0-6); HEMATOCRIT 38.6 % (35.0-45.0); HEMOGLOBIN 11.9 g/dl (12.0-16.0); LYMPHOCYTES % (AUTO) 23.8 % (21-51); MEAN CORPUSCULAR HEMOGLOBIN 23.5 PG (27.0-31.0); MEAN CORPUSCULAR HGB CONC 30.9 g/dL (33.0-36.5); MEAN PLATELET VOLUME 8.1 FL (7.4-10.4); MONOCYTES # (AUTO) 0.9 X10'3 (0-0.9); MONOCYTES % (AUTO) 11.1 % (2-12); NEUTROPHILS # (AUTO) 5.2 X10'3 (1.8-7.7); NEUTROPHILS % (AUTO) 62.4 % (42-75); PLATELET COUNT 309 X10'3 (140-440); RED BLOOD COUNT 5.07 X10'6 (4.20-5.60); RED CELL DISTRIBUTION WIDTH 19.2 % (11.5-14.5); WHITE BLOOD COUNT 8.3 X10'3 (4.5-11.0)
[2023-01-15] MEDS: insulin Lispro (HumaLOG) vial - multi-dose SQ SCH ×3 (09:06→19:59)
[2023-01-15 10:00] VITALS: BP 104/54
[2023-01-15 10:05] LABS: ANISOCYTOSIS 2+; BURR CELLS 1+; ELLIPTOCYTES 1+; HYPOCHROMASIA 1+; MICROCYTOSIS 1+; PLATELET ESTIMATE NORMAL; POLYCHROMASIA 1+; SCHISTOCYTES FEW
[2023-01-15 15:00] VITALS: BP 102/56
--- NOTE | 2023-01-15 15:34 | NUR ---
Per EMR pt with T2DM, poorly controlled with A1c 10.5% and BG 331 mg/dL on admit. Attempted visit with pt at bedside however pt unavailable. Will attempt DM education at another time. Addendum: 01/15/23 at [address] Amended: Links added.
--- NOTE | 2023-01-15 16:50 | NUR ---
Unable to have Pt home med Victoza. Dr Middleton aware.
[2023-01-15 18:00] VITALS: BP 102/56
--- NOTE | 2023-01-15 18:00 | NUR ---
Patient in room PCU 3027. I have received report from Urvashi OROSCO and had the opportunity to ask questions and assume patient care.
[2023-01-15] MEDS: insulin glargine (Lantus) pen - multi-dose SQ SCH (21:00)
[2023-01-15] MEDS: atorvastatin 20mg tablet PO SCH (21:15)
[2023-01-15] MEDS: metoprolol succinate 25mg (24-HOUR) SR. Tablet PO SCH (21:15)
[2023-01-15] MEDS: HYDROcodone/acetaminophen 5mg/325mg tablet PO PRN (21:15)
[2023-01-15 22:00] VITALS: BP 118/61
[2023-01-16 02:00] VITALS: BP 121/65
[2023-01-16 06:00] VITALS: BP 137/66
--- NOTE | 2023-01-16 06:38 | NUR ---
Patient in room U 3027. I have received report from Agustina OROSCO and had the opportunity to ask questions and assume patient care. Pt sleeping, No distress, Call light in reach. Addendum: 01/16/23 at 0639 by Urvashi Hodges RN Amended: Links added.
--- NOTE | 2023-01-16 07:05 | NUR ---
Problems reprioritized. Patient report given, questions answered & plan of care reviewed with Urvashi OROSCO.
[2023-01-16] MEDS: K and/or MAG REPLACEMENT MC SCH (08:00)
[2023-01-16] MEDS: LIRAGLUTIDE 0.6 MG/0.1 ML PEN.INJCTR SQ SCH (08:00)
[2023-01-16] MEDS: docusate sod 100mg capsule PO SCH (08:00)
[2023-01-16 08:01] LABS: BASOPHILS # (AUTO) 0.1 X10'3 (0-0.2); BASOPHILS % (AUTO) 0.7 % (0-1); EOSINOPHILS # (AUTO) 0.1 X10'3 (0-0.9); EOSINOPHILS % (AUTO) 1.8 % (0-6); HEMATOCRIT 40.6 % (35.0-45.0); HEMOGLOBIN 12.7 g/dl (12.0-16.0); LYMPHOCYTES # (AUTO) 1.5 X10'3 (1.1-4.8); LYMPHOCYTES % (AUTO) 19.4 % (21-51); MEAN CORPUSCULAR HEMOGLOBIN 23.7 PG (27.0-31.0); MEAN CORPUSCULAR HGB CONC 31.3 g/dL (33.0-36.5); MEAN CORPUSCULAR VOLUME 75.9 FL (78-98); MEAN PLATELET VOLUME 8.1 FL (7.4-10.4); MONOCYTES # (AUTO) 0.7 X10'3 (0-0.9); MONOCYTES % (AUTO) 9.3 % (2-12); NEUTROPHILS # (AUTO) 5.5 X10'3 (1.8-7.7); NEUTROPHILS % (AUTO) 68.8 % (42-75); PLATELET COUNT 342 X10'3 (140-440); RED BLOOD COUNT 5.34 X10'6 (4.20-5.60); RED CELL DISTRIBUTION WIDTH 19.2 % (11.5-14.5); WHITE BLOOD COUNT 7.9 X10'3 (4.5-11.0)
[2023-01-16 08:18] LABS: ALBUMIN 2.9 G/DL (3.4-5.0); ANION GAP 10 (8-16); BLOOD UREA NITROGEN 32 MG/DL (7-18); BUN/CREATININE RATIO 26.4 (10.0-20.0); CALCIUM 9.4 MG/DL (8.5-10.1); CHLORIDE 99 MMOL/L (99-107); CREATININE 1.21 MG/DL (0.40-0.90); GLUCOSE 129 MG/DL (70-104); MAGNESIUM 1.6 MG/DL (1.5-2.4); SODIUM 141 MMOL/L (135-145); TOTAL CARBON DIOXIDE 32.5 MMOL/L (24-32); eGFR 43 ML/MIN
[2023-01-16] MEDS: lisinopril 5mg tablet PO SCH (08:18)
[2023-01-16] MEDS: levoTHYROXINE 125mcg tablet PO SCH (08:18)
[2023-01-16] MEDS: amiodarone 200mg tablet PO SCH (08:19)
[2023-01-16] MEDS: apixaban 5mg tablet PO SCH (08:19)
[2023-01-16] MEDS: clopidogrel 75mg tablet PO SCH (08:19)
[2023-01-16] MEDS: furosemide 10 MG/1 ML 10ml inj IV SCH (08:19)
[2023-01-16] MEDS: insulin Lispro (HumaLOG) vial - multi-dose SQ SCH ×2 (08:29→13:36)
[2023-01-16] MEDS: potassium Cl 20 mEq SR tablet PO PRN ×2 (09:53→13:37)
[2023-01-16 11:00] VITALS: BP 111/66
[2023-01-16] MEDS ORDERED: FURO-149 PO (12:47)
[2023-01-16] MEDS ORDERED: POTA-207 PO (12:47)
--- NOTE | 2023-01-16 13:42 | NUR ---
Pt refused kdur dose for K= replacement of K+ 3.0. States she will not take it do to it is causing her to have multiple BMs. Attempted to educate pt with absolutely no positive impact.
[2023-01-16 15:00] VITALS: BP 128/59
--- NOTE | 2023-01-16 17:39 | NUR ---
Pt refusing BS check. States she will take it at home. Waiting miner pick by son.
--- NOTE | 2023-01-16 18:09 | NUR ---
All written and verbal orders for D/C given to son Gio on phone prior to D/C. Pt refused to sign D/C paper. She did not like the fact that the page read "given to me by my caregivers" AKASH Powers at bedside. Gio encouraged mom to sign but in order not to distress pt, this was not enforced by me. Pt left hospital via W/C home with son.
== END 2023-01-16 19:00 | disposition home health service (06) | DRG 280 ==
LOC: ER 13:09 → ED HOLD 17:38 → PCU 3S 01-14 18:08
PROVIDERS: ADMIT Family Medicine; ATTEND Family Medicine
DX: I11.0 Hypertensive heart disease with heart failure (principal); I50.23 Acute on chronic systolic (congestive) heart failure; I21.A1 Myocardial infarction type 2; E11.9 Type 2 diabetes mellitus without complications; E03.9 Hypothyroidism, unspecified; E78.5 Hyperlipidemia, unspecified; I25.10 Atherosclerotic heart disease of native coronary artery without angina pectoris; I48.91 Unspecified atrial fibrillation; Z86.73 Personal history of transient ischemic attack (TIA), and cerebral infarction without residual deficits; Z95.5 Presence of coronary angioplasty implant and graft; Z79.899 Other long term (current) drug therapy; Z79.4 Long term (current) use of insulin
CPT/HCPCS: 36415; 71045; 80048; 80053; 82948; 83036; 83735; 83880; 84443; 84484; 85008; 85025; 93005; 93306; 97116; 97161; 97530; 99285; G0378; J1815; J1940; J3490

== ENCOUNTER 2023-09-21 21:12 | Inpatient (IN) | payer BC, MEDICAID ==
[~2023-09-21] VITALS: Ht 160 cm; Wt 80.4 kg
[~2023-09-21 21:12] MED LIST changes: +AMI200T PO; -ASPI-1265 PO; -ATOR40TA PO; +ATOR40TA72 PO; +CLOP75TA34 PO; +FURO-149 PO; -HUM7525 SQ; +HYDR-3964 PO; +INSU100I75 SQ; -INSU100V9 SQ; -LEVO125T PO; +LEVO125T8 PO; +LIRA0.6P2 SQ; -LISI-642 PO; +LISI5TAB22 PO; +METO-384 PO; -METO50TA17 PO; +NOVLG SQ; -SPIR25TA5 PO; -TICA90TA2 PO
[2023-09-21 22:22] LABS: BASOPHILS # (AUTO) 0.1 X10'3 (0-0.2); BASOPHILS % (AUTO) 0.7 % (0-1); EOSINOPHILS # (AUTO) 0.1 X10'3 (0-0.9); EOSINOPHILS % (AUTO) 0.9 % (0-6); HEMATOCRIT 40.2 % (35.0-45.0); HEMOGLOBIN 12.7 g/dl (12.0-16.0); LYMPHOCYTES # (AUTO) 2.2 X10'3 (1.1-4.8); LYMPHOCYTES % (AUTO) 25.5 % (21-51); MEAN CORPUSCULAR HEMOGLOBIN 25.2 PG (27.0-31.0); MEAN CORPUSCULAR HGB CONC 31.5 g/dL (33.0-36.5); MONOCYTES # (AUTO) 0.9 X10'3 (0-0.9); MONOCYTES % (AUTO) 10.7 % (2-12); NEUTROPHILS # (AUTO) 5.3 X10'3 (1.8-7.7); NEUTROPHILS % (AUTO) 62.2 % (42-75); PLATELET COUNT 259 X10'3 (140-440); RED BLOOD COUNT 5.02 X10'6 (4.20-5.60); RED CELL DISTRIBUTION WIDTH 20.2 % (11.5-14.5); WHITE BLOOD COUNT 8.5 X10'3 (4.5-11.0)
[2023-09-21 22:37] LABS: ALANINE AMINOTRANSFERASE 39 U/L (12-78); ALBUMIN/GLOBULIN RATIO 0.7 (1.1-1.5); ALKALINE PHOSPHATASE 63 IU/L (46-116); ANION GAP 9 (8-16); ASPARTATE AMINO TRANSFERASE 22 U/L (10-37); BILIRUBIN,TOTAL 0.4 MG/DL (0.1-1.0); BLOOD UREA NITROGEN 40 MG/DL (7-18); BUN/CREATININE RATIO 19.8 (10.0-20.0); CALCIUM 8.9 MG/DL (8.5-10.1); CHLORIDE 95 MMOL/L (99-107); CREATININE 2.02 MG/DL (0.40-0.90); GLUCOSE 247 MG/DL (70-104); POTASSIUM 3.3 MMOL/L (3.5-5.1); SODIUM 133 MMOL/L (135-145); TOTAL CARBON DIOXIDE 29.2 MMOL/L (24-32); TOTAL PROTEIN 7.2 G/DL (6.4-8.2); eGFR 24 ML/MIN
[2023-09-21 22:44] LABS: PRO BRAIN NATRIURETIC PEPTIDE 2667 PG/ML (0-450)
[2023-09-21 23:49] LABS: ANISOCYTOSIS 3+; BURR CELLS FEW; ELLIPTOCYTES 1+; PLATELET ESTIMATE NORMAL; POLYCHROMASIA 1+
[2023-09-22] MEDS ORDERED: metoprolol tartrate 50mg tablet PO ONE (00:50)
[2023-09-22] MEDS ORDERED: acetaminophen 650mg rectal suppository RC PRN (02:25)
[2023-09-22] MEDS ORDERED: HYDROcodone/acetaminophen 5mg/325mg tablet PO PRN (02:25)
[2023-09-22] MEDS ORDERED: magnesium hydroxide 30ml (MOM) UD suspension PO PRN (02:25)
[2023-09-22] MEDS ORDERED: bisacodyl 10mg suppository rectal RC PRN (02:25)
[2023-09-22] MEDS ORDERED: potassium Cl 20 mEq SR tablet PO PRN ×2 (02:25)
[2023-09-22] MEDS ORDERED: mag hydrox/Alum hydrox/simeth 30ml oral suspension PO PRN (02:25)
[2023-09-22] MEDS: potassium Cl 20mEq in NS 1,000 ML IV SCH ×3 (02:25→22:25)
[2023-09-22] MEDS ORDERED: morphine 2 MG/ML inj. syringe IV PRN ×2 (02:25)
[2023-09-22] MEDS ORDERED: ondansetron 4mg rapidly disintigrating tab PO PRN (02:25)
[2023-09-22] MEDS ORDERED: acetaminophen 325mg tablet PO PRN ×2 (02:25)
[2023-09-22] MEDS ORDERED: ondansetron/PF 4mg/2ml inj IV PRN (02:25)
[2023-09-22] MEDS ORDERED: potassium Cl 40MEQ/1/2NS 520ml 520 ML IV PRN (02:25)
[2023-09-22] MEDS ORDERED: diphenhydrAMINE 25mg capsule PO PRN (02:25)
[2023-09-22] MEDS ORDERED: dextrose 50%-water 50ml dispensing syringe IV PRN ×2 (02:30)
[2023-09-22] MEDS ORDERED: glucagon, human recombinant 1mg kit SUBCUT PRN (02:30)
[2023-09-22] MEDS ORDERED: DEXTROSE 15 GM of carb/4 tabs (each vial/BOTTLE has 4 tablets) PO PRN ×2 (02:30)
[2023-09-22] MEDS ORDERED: MESSAGE TO PHARMACY PO ONE (02:30)
[2023-09-22] MEDS ORDERED: digoxin 250mcg/ml 2ml ampule IV ONE (02:35)
[2023-09-22] MEDS: pantoprazole 40mg Tablet.DR PO SCH (07:30)
[2023-09-22] MEDS: docusate sod 100mg capsule PO SCH ×2 (07:43→20:00)
[2023-09-22 08:38] LABS: BILIRUBIN,URINE NEGATIVE (Neg); CLARITY,URINE CLOUDY (Clear); COLOR,URINE STRAW (Yellow); GLUCOSE, URINE >=1000 mg/dl (Neg); KETONES,URINE NEGATIVE (Neg); LEUKOCYTE ESTERASE ,URINE SMALL (Neg); NITRITES, URINE NEGATIVE (Neg); OCCULT BLOOD,URINE TRACE-INTACT (Neg); PH,URINE 5.5 (4.8-8.0); PROTEIN,URINE NEGATIVE (Neg); UROBILINOGEN,URINE 0.2 E.U/dL (0.2-1.0)
[2023-09-22 08:46] LABS: SQUAMOUS EPITHELIAL CELL,UR MANY /LPF (FEW)
[2023-09-22 08:47] LABS: BACTERIA,URINE 4+ /HPF (Neg); TRANSITIONAL EPI CELLS,URINE MODERATE /HPF; WBC CLUMPS,URINE MANY /HPF (NEGATIVE); WBC,URINE TNTC /HPF (0-4)
[2023-09-22 08:49] LABS: APTT 26 SECONDS (22-32); D-DIMER 0.42 MG/L FEU (0-0.50); PROTHROMBIN TIME 11.1 SECONDS (9.0-12.0)
[2023-09-22 08:53] LABS: UA COLLECTION TYPE OTHER
[2023-09-22 08:54] LABS: MAGNESIUM 2.1 MG/DL (1.5-2.4); PHOSPHORUS 3.9 MG/DL (2.3-4.5); POTASSIUM 3.9 MMOL/L (3.5-5.1)
[2023-09-22 09:17] LABS: HEMOGLOBIN A1C 8.8 % (4.5-6.2)
[2023-09-22] MEDS: insulin Lispro (HumaLOG) vial - multi-dose SQ SCH ×2 (13:09→19:52)
[2023-09-22] MEDS ORDERED: LANTUS SUBCUT (13:42)
[2023-09-22] MEDS ORDERED: POTA-188 PO (13:44)
[2023-09-22 15:58] VITALS: BP 116/55; PULSE 95; RESP 11; TEMP 97.8; O2SAT 99
[2023-09-22 18:00] VITALS: BP 109/58; PULSE 80; RESP 16; TEMP 97.6; O2SAT 99
[2023-09-22 20:00] VITALS: RESP 12; O2SAT 97
[2023-09-22] MEDS: insulin glargine (Lantus) pen - multi-dose SQ SCH (21:57)
[2023-09-22 22:00] VITALS: BP 128/63; PULSE 86; RESP 12; TEMP 97.5; O2SAT 97
[2023-09-22] MEDS ORDERED: atorvastatin 20mg tablet PO SCH (22:30)
[2023-09-22] MEDS ORDERED: apixaban 5mg tablet PO SCH (22:30)
[2023-09-23] VITALS (8 sets, daily range): BP systolic 95–141; BP diastolic 43–68; PULSE 94–107; RESP 14–21; TEMP 97.2–98.3; O2SAT 95–100
[2023-09-23] MEDS ORDERED: vancomycin/NS 1 GM ADD-VANTAGE 250 ML IV SCH (04:00)
[2023-09-23 07:19] LABS: BASOPHILS # (AUTO) 0.1 X10'3 (0-0.2); BASOPHILS % (AUTO) 0.6 % (0-1); EOSINOPHILS # (AUTO) 0.1 X10'3 (0-0.9); EOSINOPHILS % (AUTO) 0.8 % (0-6); HEMATOCRIT 39.7 % (35.0-45.0); HEMOGLOBIN 12.7 g/dl (12.0-16.0); LYMPHOCYTES # (AUTO) 1.4 X10'3 (1.1-4.8); LYMPHOCYTES % (AUTO) 14.8 % (21-51); MEAN CORPUSCULAR HEMOGLOBIN 25.6 PG (27.0-31.0); MEAN CORPUSCULAR HGB CONC 31.8 g/dL (33.0-36.5); MEAN CORPUSCULAR VOLUME 80.4 FL (78-98); MEAN PLATELET VOLUME 8.6 FL (7.4-10.4); MONOCYTES % (AUTO) 10.2 % (2-12); NEUTROPHILS # (AUTO) 7.2 X10'3 (1.8-7.7); NEUTROPHILS % (AUTO) 73.6 % (42-75); PLATELET COUNT 237 X10'3 (140-440); RED BLOOD COUNT 4.94 X10'6 (4.20-5.60); RED CELL DISTRIBUTION WIDTH 20.6 % (11.5-14.5); WHITE BLOOD COUNT 9.8 X10'3 (4.5-11.0)
[2023-09-23 07:35] LABS: ALBUMIN 2.8 G/DL (3.4-5.0); ANION GAP 9 (8-16); BLOOD UREA NITROGEN 28 MG/DL (7-18); BUN/CREATININE RATIO 25.7 (10.0-20.0); CALCIUM 8.9 MG/DL (8.5-10.1); CHLORIDE 104 MMOL/L (99-107); CHOL/HDL RATIO 3.3 (0.00-4.99); CHOLESTEROL 158 MG/DL (0-200); CREATININE 1.09 MG/DL (0.40-0.90); GLUCOSE 199 MG/DL (70-104); HDL CHOLESTEROL 48 MG/DL (35-60); LDL CHOLESTEROL 94 MG/DL (50-100); POTASSIUM 4.6 MMOL/L (3.5-5.1); SODIUM 137 MMOL/L (135-145); TOTAL CARBON DIOXIDE 24.1 MMOL/L (24-32); TRIGLYCERIDES 106 MG/DL (20-135); eCRCL 34 ML/MIN; eGFR 48 ML/MIN
[2023-09-23] MEDS: docusate sod 100mg capsule PO SCH ×2 (08:00→20:46)
[2023-09-23] MEDS: potassium Cl 20mEq in NS 1,000 ML IV SCH (08:25)
[2023-09-23] MEDS: pantoprazole 40mg Tablet.DR PO SCH (08:42)
[2023-09-23] MEDS: insulin Lispro (HumaLOG) vial - multi-dose SQ SCH ×3 (10:06→21:01)
[2023-09-23] MEDS ORDERED: Insulin ASPART (NovoLOG) pen SQ PRN (11:15)
[2023-09-23] MEDS ORDERED: HYDROcodone/acetaminophen 5mg/325mg tablet PO PRN (11:15)
[2023-09-23] MEDS ORDERED: potassium chloride 10mEq ER tablet PO SCH (11:35)
[2023-09-23] MEDS: levoTHYROXINE 125mcg tablet PO SCH ×2 (11:36→11:53)
[2023-09-23] MEDS: furosemide 40mg tablet PO SCH (11:53)
[2023-09-23] MEDS: lisinopril 5mg tablet PO SCH (11:54)
[2023-09-23] MEDS: apixaban 5mg tablet PO SCH ×2 (11:55→20:46)
[2023-09-23] MEDS: amiodarone 200mg tablet PO SCH (11:55)
[2023-09-23 13:38] LABS: BILIRUBIN,URINE NEGATIVE (Neg); CLARITY,URINE CLOUDY (Clear); COLOR,URINE STRAW (Yellow); GLUCOSE, URINE >=1000 mg/dl (Neg); KETONES,URINE NEGATIVE (Neg); LEUKOCYTE ESTERASE ,URINE SMALL (Neg); NITRITES, URINE NEGATIVE (Neg); OCCULT BLOOD,URINE TRACE-INTACT (Neg); PROTEIN,URINE NEGATIVE (Neg); UROBILINOGEN,URINE 0.2 E.U/dL (0.2-1.0)
[2023-09-23 13:43] LABS: UA COLLECTION TYPE NON-SPECIFIED
[2023-09-23 13:44] LABS: SQUAMOUS EPITHELIAL CELL,UR FEW /LPF (FEW); WBC,URINE TNTC /HPF (0-4)
[2023-09-23 13:45] LABS: BACTERIA,URINE 2+ /HPF (Neg); YEAST FEW /HPF (NEGATIVE)
[2023-09-23] MEDS ORDERED: apixaban 5mg tablet PO SCH (20:00)
[2023-09-23] MEDS: metoprolol succinate 25mg (24-HOUR) SR. Tablet PO SCH (20:46)
[2023-09-23] MEDS: insulin glargine (Lantus) pen - multi-dose SQ SCH (20:59)
[2023-09-23] MEDS ORDERED: insulin glargine (Lantus) pen - multi-dose SQ SCH (21:00)
[2023-09-23] MEDS: temazepam 15mg capsule PO PRN (21:51)
[2023-09-24] VITALS (7 sets, daily range): BP systolic 98–122; BP diastolic 46–68; PULSE 80–96; RESP 14–19; TEMP 96.8–98.1; O2SAT 95–97
[2023-09-24] MEDS: vancomycin/NS 1 GM ADD-VANTAGE 250 ML X 1 DOSE IV SCH (04:33)
[2023-09-24 06:07] LABS: BASOPHILS # (AUTO) 0.1 X10'3 (0-0.2); BASOPHILS % (AUTO) 0.8 % (0-1); EOSINOPHILS # (AUTO) 0.1 X10'3 (0-0.9); EOSINOPHILS % (AUTO) 1.2 % (0-6); HEMOGLOBIN 12.8 g/dl (12.0-16.0); LYMPHOCYTES # (AUTO) 1.8 X10'3 (1.1-4.8); LYMPHOCYTES % (AUTO) 22.8 % (21-51); MEAN CORPUSCULAR HEMOGLOBIN 25.5 PG (27.0-31.0); MEAN CORPUSCULAR VOLUME 79.7 FL (78-98); MEAN PLATELET VOLUME 8.4 FL (7.4-10.4); MONOCYTES # (AUTO) 0.9 X10'3 (0-0.9); NEUTROPHILS # (AUTO) 4.9 X10'3 (1.8-7.7); NEUTROPHILS % (AUTO) 63.2 % (42-75); PLATELET COUNT 246 X10'3 (140-440); RED BLOOD COUNT 5.02 X10'6 (4.20-5.60); RED CELL DISTRIBUTION WIDTH 20.1 % (11.5-14.5); WHITE BLOOD COUNT 7.7 X10'3 (4.5-11.0)
[2023-09-24 06:17] LABS: ALBUMIN 2.7 G/DL (3.4-5.0); ANION GAP 6 (8-16); BLOOD UREA NITROGEN 32 MG/DL (7-18); BUN/CREATININE RATIO 24.2 (10.0-20.0); CHLORIDE 103 MMOL/L (99-107); CREATININE 1.32 MG/DL (0.40-0.90); GLUCOSE 214 MG/DL (70-104); POTASSIUM 3.7 MMOL/L (3.5-5.1); SODIUM 137 MMOL/L (135-145); TOTAL CARBON DIOXIDE 28.2 MMOL/L (24-32); eCRCL 28 ML/MIN; eGFR 39 ML/MIN
[2023-09-24] MEDS ORDERED: levoTHYROXINE 125mcg tablet PO SCH (07:00)
[2023-09-24] MEDS: LIRAGLUTIDE 0.6 MG/0.1 ML PEN.INJCTR SQ SCH (08:00)
[2023-09-24] MEDS ORDERED: lisinopril 5mg tablet PO SCH (08:00)
[2023-09-24] MEDS ORDERED: amiodarone 200mg tablet PO SCH (08:00)
[2023-09-24] MEDS ORDERED: potassium chloride 10mEq ER tablet PO SCH (08:00)
[2023-09-24] MEDS: docusate sod 100mg capsule PO SCH ×2 (08:00→20:00)
[2023-09-24] MEDS ORDERED: furosemide 40mg tablet PO SCH (08:00)
[2023-09-24] MEDS: amiodarone 200mg tablet PO SCH (08:07)
[2023-09-24] MEDS: pantoprazole 40mg Tablet.DR PO SCH (08:07)
[2023-09-24] MEDS: apixaban 5mg tablet PO SCH ×2 (08:07→20:46)
[2023-09-24] MEDS: levoTHYROXINE 125mcg tablet PO SCH (08:07)
[2023-09-24] MEDS: furosemide 40mg tablet PO SCH (08:07)
[2023-09-24] MEDS: lisinopril 5mg tablet PO SCH (08:08)
[2023-09-24] MEDS: potassium Cl 20 mEq SR tablet PO SCH (08:08)
[2023-09-24] MEDS: insulin Lispro (HumaLOG) vial - multi-dose SQ SCH ×2 (09:40→13:29)
[2023-09-24 09:51] LABS: ANISOCYTOSIS 3+; MICROCYTOSIS 1+; PLATELET ESTIMATE NORMAL
[2023-09-24 09:52] LABS: BURR CELLS FEW; ELLIPTOCYTES 1+; SCHISTOCYTES FEW
[2023-09-24 12:53] LABS: THYROID STIMULATING HORMONE 5.68 ulU/ml (0.34-4.50)
[2023-09-24] MEDS ORDERED: CefTRIAXone/D5W-Rocephin 1gm 50 ML IV ONE (16:40)
[2023-09-24] MEDS: metoprolol succinate 25mg (24-HOUR) SR. Tablet PO SCH (20:46)
[2023-09-24] MEDS: temazepam 15mg capsule PO PRN (20:55)
[2023-09-24] MEDS: insulin glargine (Lantus) pen - multi-dose SQ SCH (21:00)
[2023-09-25 02:31] VITALS: BP 115/60; PULSE 92; RESP 14; TEMP 97; O2SAT 96
[2023-09-25] MEDS: vancomycin/NS 1 GM ADD-VANTAGE 250 ML X 1 DOSE IV SCH (04:17)
[2023-09-25 06:00] VITALS: BP 113/54; PULSE 78; RESP 16; TEMP 97.7; O2SAT 95
[2023-09-25 06:49] LABS: BASOPHILS % (AUTO) 0.7 % (0-1); EOSINOPHILS # (AUTO) 0.1 X10'3 (0-0.9); EOSINOPHILS % (AUTO) 1.3 % (0-6); HEMATOCRIT 38.6 % (35.0-45.0); HEMOGLOBIN 12.2 g/dl (12.0-16.0); LYMPHOCYTES # (AUTO) 1.6 X10'3 (1.1-4.8); LYMPHOCYTES % (AUTO) 22.8 % (21-51); MEAN CORPUSCULAR HEMOGLOBIN 25.3 PG (27.0-31.0); MEAN CORPUSCULAR HGB CONC 31.6 g/dL (33.0-36.5); MEAN CORPUSCULAR VOLUME 80.1 FL (78-98); MEAN PLATELET VOLUME 7.9 FL (7.4-10.4); MONOCYTES # (AUTO) 0.9 X10'3 (0-0.9); NEUTROPHILS # (AUTO) 4.5 X10'3 (1.8-7.7); NEUTROPHILS % (AUTO) 63.2 % (42-75); PLATELET COUNT 247 X10'3 (140-440); RED BLOOD COUNT 4.82 X10'6 (4.20-5.60); RED CELL DISTRIBUTION WIDTH 20.2 % (11.5-14.5); WHITE BLOOD COUNT 7.1 X10'3 (4.5-11.0)
[2023-09-25 06:56] LABS: ALBUMIN 2.4 G/DL (3.4-5.0); ANION GAP 8 (8-16); BLOOD UREA NITROGEN 33 MG/DL (7-18); BUN/CREATININE RATIO 27.7 (10.0-20.0); CALCIUM 8.7 MG/DL (8.5-10.1); CHLORIDE 102 MMOL/L (99-107); CREATININE 1.19 MG/DL (0.40-0.90); GLUCOSE 198 MG/DL (70-104); SODIUM 136 MMOL/L (135-145); TOTAL CARBON DIOXIDE 26.3 MMOL/L (24-32); eCRCL 31 ML/MIN; eGFR 44 ML/MIN
[2023-09-25 07:37] LABS: PLATELET ESTIMATE NORMAL
[2023-09-25 07:38] LABS: ANISOCYTOSIS 2+; ELLIPTOCYTES FEW; MICROCYTOSIS 1+; POLYCHROMASIA FEW
[2023-09-25] MEDS: amiodarone 200mg tablet PO SCH (07:51)
[2023-09-25] MEDS: apixaban 5mg tablet PO SCH (07:51)
[2023-09-25] MEDS: docusate sod 100mg capsule PO SCH (07:51)
[2023-09-25] MEDS: potassium Cl 20 mEq SR tablet PO SCH (07:51)
[2023-09-25] MEDS: pantoprazole 40mg Tablet.DR PO SCH (07:51)
[2023-09-25] MEDS ORDERED: CefTRIAXone/D5W-Rocephin 1gm 50 ML IV SCH (08:00)
[2023-09-25] MEDS: LIRAGLUTIDE 0.6 MG/0.1 ML PEN.INJCTR SQ SCH (08:00)
[2023-09-25] MEDS ORDERED: furosemide 20MG tablet PO SCH (08:00)
[2023-09-25] MEDS: insulin Lispro (HumaLOG) vial - multi-dose SQ SCH ×2 (09:24→14:22)
[2023-09-25] MEDS ORDERED: AMOX-117 PO (10:57)
[2023-09-25 11:00] VITALS: BP 128/56; PULSE 100; RESP 19; TEMP 97.8; O2SAT 95
[2023-09-26] MEDS ORDERED: VANCOMYCIN LEVEL IV ONE (03:30)
== END 2023-09-25 15:50 | disposition home health service (06) | DRG 280 ==
LOC: ER 21:13 → ED HOLD 09-22 02:28 → PCU 3S 09-22 15:07
PROVIDERS: ADMIT Family Medicine; ATTEND Internal Medicine
DX: I13.0 Hypertensive heart and chronic kidney disease with heart failure and stage 1 through stage 4 chronic kidney disease, or unspecified chronic kidney disease (principal); I21.A1 Myocardial infarction type 2; I50.23 Acute on chronic systolic (congestive) heart failure; N17.9 Acute kidney failure, unspecified; E87.1 Hypo-osmolality and hyponatremia; N39.0 Urinary tract infection, site not specified; R78.81 Bacteremia; N18.9 Chronic kidney disease, unspecified; E78.5 Hyperlipidemia, unspecified; B96.1 Klebsiella pneumoniae [K. pneumoniae] as the cause of diseases classified elsewhere; G89.4 Chronic pain syndrome; E03.9 Hypothyroidism, unspecified; B96.89 Other specified bacterial agents as the cause of diseases classified elsewhere; E11.22 Type 2 diabetes mellitus with diabetic chronic kidney disease; B95.62 Methicillin resistant Staphylococcus aureus infection as the cause of diseases classified elsewhere; E11.65 Type 2 diabetes mellitus with hyperglycemia; I48.91 Unspecified atrial fibrillation; E87.6 Hypokalemia; I25.10 Atherosclerotic heart disease of native coronary artery without angina pectoris; Z86.73 Personal history of transient ischemic attack (TIA), and cerebral infarction without residual deficits; I25.2 Old myocardial infarction; Z79.899 Other long term (current) drug therapy
CPT/HCPCS: 36415; 71045; 80048; 80053; 80061; 81001; 82948; 83036; 83605; 83735; 83880; 84100; 84132; 84145; 84443; 84484; 85008; 85025; 85379; 85610; 85730; 87040; 87077; 87081; 87088; 87186; 93005; 93306; 97116; 97161; 97530; 99285; A4615; A6455; G0378; J0696; J1815; J3370; J3480; J7040

== ENCOUNTER 2024-07-15 20:41 | Emergency (ER) | payer BC, MEDICAID ==
[~2024-07-15] VITALS: Ht 152.4 cm; Wt 84.1 kg
[~2024-07-15 20:41] MED LIST changes: +ASPI81TA53 PO; -CLOP75TA34 PO; -FURO-149 PO; +FURO40TA4 PO; -HYDR-3964 PO; -INSU100I75 SQ; +LANTUS SUBCUT; +POTA-188 PO
[2024-07-15 21:17] LABS: BASOPHILS # (AUTO) 0.1 X10'3 (0-0.2); BASOPHILS % (AUTO) 0.6 % (0-1); EOSINOPHILS # (AUTO) 0.1 X10'3 (0-0.9); EOSINOPHILS % (AUTO) 0.9 % (0-6); HEMATOCRIT 42.7 % (35.0-45.0); HEMOGLOBIN 13.8 g/dl (12.0-16.0); LYMPHOCYTES # (AUTO) 1.8 X10'3 (1.1-4.8); LYMPHOCYTES % (AUTO) 19.7 % (21-51); MEAN CORPUSCULAR HEMOGLOBIN 26.9 PG (27.0-31.0); MEAN CORPUSCULAR HGB CONC 32.4 g/dL (33.0-36.5); MEAN CORPUSCULAR VOLUME 82.9 FL (78-98); MEAN PLATELET VOLUME 8.4 FL (7.4-10.4); MONOCYTES # (AUTO) 0.9 X10'3 (0-0.9); NEUTROPHILS # (AUTO) 6.4 X10'3 (1.8-7.7); NEUTROPHILS % (AUTO) 68.8 % (42-75); PLATELET COUNT 321 X10'3 (140-440); RED BLOOD COUNT 5.15 X10'6 (4.20-5.60); RED CELL DISTRIBUTION WIDTH 19.4 % (11.5-14.5); WHITE BLOOD COUNT 9.2 X10'3 (4.5-11.0)
[2024-07-15 21:22] LABS: TOTAL CARBON DIOXIDE 33.1 MMOL/L (24-32)
[2024-07-15 21:33] LABS: ALANINE AMINOTRANSFERASE 33 U/L (12-78); ALBUMIN 2.7 G/DL (3.4-5.0); ALBUMIN/GLOBULIN RATIO 0.6 (1.1-1.5); ALKALINE PHOSPHATASE 79 IU/L (46-116); ANION GAP 5 (8-16); ASPARTATE AMINO TRANSFERASE 33 U/L (10-37); BILIRUBIN,TOTAL 0.4 MG/DL (0.1-1.0); BLOOD UREA NITROGEN 24 MG/DL (7-18); BUN/CREATININE RATIO 26.7 (10.0-20.0); CALCIUM 9.5 MG/DL (8.5-10.1); CHLORIDE 101 MMOL/L (99-107); GLUCOSE 168 MG/DL (70-104); POTASSIUM 3.3 MMOL/L (3.5-5.1); SODIUM 139 MMOL/L (135-145); TOTAL PROTEIN 7.3 G/DL (6.4-8.2); eCRCL 35 ML/MIN; eGFR 60 ML/MIN
[2024-07-15 21:38] LABS: BILIRUBIN,URINE NEGATIVE (Neg); CLARITY,URINE CLOUDY (Clear); COLOR,URINE YELLOW (Yellow); GLUCOSE, URINE NEGATIVE (Neg); KETONES,URINE NEGATIVE (Neg); LEUKOCYTE ESTERASE ,URINE LARGE (Neg); NITRITES, URINE NEGATIVE (Neg); OCCULT BLOOD,URINE TRACE-INTACT (Neg); PROTEIN,URINE NEGATIVE (Neg); UROBILINOGEN,URINE 0.2 E.U/dL (0.2-1.0)
[2024-07-15 21:42] LABS: UA COLLECTION TYPE NON-SPECIFIED
[2024-07-15 21:47] LABS: BACTERIA,URINE FEW /HPF (Neg); RBC,URINE 0-2 /HPF (0-2); SQUAMOUS EPITHELIAL CELL,UR FEW /LPF (FEW); WBC,URINE 50-100 /HPF (0-4)
[2024-07-15 21:48] LABS: WBC CLUMPS,URINE MODERATE /HPF (NEGATIVE)
[2024-07-15] MEDS ORDERED: AMOX-117 PO (22:25)
[2024-07-15] MEDS: amox tr/potassium clavulanate 875/125mg TAB PO STA (22:29)
[2024-07-15] MEDS: acetaminophen 325mg tablet PO ONE (22:37)
[2024-07-15 23:02] VITALS: BP 123/70; PULSE 101; RESP 16; TEMP 98.4; O2SAT 96
== END 2024-07-15 23:05 | disposition home or self-care (01) ==
LOC: ER 20:41
DX: N39.0 Urinary tract infection, site not specified (principal); I11.0 Hypertensive heart disease with heart failure; I50.9 Heart failure, unspecified; E11.9 Type 2 diabetes mellitus without complications; I48.91 Unspecified atrial fibrillation; Z79.899 Other long term (current) drug therapy; Z79.82 Long term (current) use of aspirin; Z79.4 Long term (current) use of insulin; Z86.73 Personal history of transient ischemic attack (TIA), and cerebral infarction without residual deficits
CPT/HCPCS: 36415; 80053; 81001; 85025; 87077; 87088; 87186; 99283; A4353